=== PATIENT | female | born 1970 | race Caucasian/White ===

== ENCOUNTER 2016-06-12 11:59 | Emergency (ER) | payer OTHER ==
[~2016-06-12] VITALS: Ht 162.6 cm; Wt 85.2 kg
[2016-06-12] MEDS ORDERED: ONDANSETRON INJ 2 MG/ML 2 ML VIAL ONE (12:11)
[2016-06-12] MEDS ORDERED: SODIUM CHLORIDE 0.9% 1000ML 1,000 ML IV SCH (12:28)
[2016-06-12] MEDS ORDERED: HYDROmorphone INJ 1 MG/ML SYR IV STA (12:28)
[2016-06-12] MEDS ORDERED: PROCHLORPERAZINE 5 MG/ML 2 ML VIAL IV STA (12:28)
[2016-06-12] MEDS ORDERED: KETOROLAC TROMETHAMINE 30 MG/ML VIAL IV STA (12:28)
[2016-06-12] MEDS ORDERED: DiphenhydrAMINE HCL 50 MG/ML VIAL IV STA (12:28)
[2016-06-12] MEDS ORDERED: LABETALOL HCL IV 5 MG/ML 20ML IV STA (12:30)
--- NOTE | 2016-06-12 12:38 | EMERGENCY ROOM VISIT NOTE ---
History Report prepared by Lorna: Robinson Cruz Under the Supervision of: Dr. Angel Mullins M.D. First contact with patient: 12:19 Chief Complaint: SYNCOPE (NEAR SYNCOPE) Stated Complaint: SYNCOPE Nursing Triage Summary: Pt has had a headache for seven days. + N/V Zofran given per protocal History of Present Illness The patient is a 45 year old female who presents to the Emergency Room with complaints of a sudden episode of syncope occurring prior to arrival. She additionally complains of vomiting. The patient's states that she was at [facility], and she stated that she was dizzy, and then she lost her consciousness. The states that she had loss of consciousness for about two minutes. The states that the patient had Lyme's disease, and she smokes marijuana for the symptoms. The states that the patient has been having recurring headaches since she was diagnosed Source of History: patient Onset: prior to arrival Position: other (global) Quality: other (sycopal episode) Timing: other (sudden) Associated Symptoms: + LOC, + headache, + vomiting Review of Systems See HPI for pertinent positives & negatives. A total of 10 systems reviewed and were otherwise negative. Past Medical & Surgical Medical Problems: (1) Acute Lyme disease (2) Hypertension Social History Smoking Status: Current Some Day Smoker Drug Use: marijuana Marital Status: Housing Status: lives with family Occupation Status: employed Current/Historical Medications No Active Prescriptions or Reported Meds Physical Exam Vital Signs Date Time Temp Pulse Resp B/P Pulse Ox O2 Delivery O2 Flow Rate FiO2 06/12/16 14:11 36.5 88 18 184/110 97 06/12/16 14:07 36.5 88 18 184/110 97 06/12/16 13:49 88 18 184/110 97 Nasal Cannula 2.0 06/12/16 13:44 97 Nasal Cannula 2.0 06/12/16 13:42 170/108 06/12/16 13:40 74 21 97 06/12/16 13:38 194/115 06/12/16 13:37 173/129 06/12/16 13:35 84 20 96 06/12/16 13:30 76 17 93 06/12/16 13:30 70 14 204/115 94 Room Air 06/12/16 12:45 94 Room Air 06/12/16 12:16 73 18 182/114 94 Room Air 06/12/16 12:14 36.5 86 22 182/114 91 Room Air 06/12/16 12:09 92 Physical Exam CONSTITUTIONAL: Moderate nauseous and painful distress. HEENT: No icterus, moist mucous membranes NECK: No meningismus, trachea is midline. CARDIOVASCULAR: Regular rate, normal perfusion RESPIRATORY: Unlabored breathing. Clear to auscultation. GASTROINTESTINAL: Non-tender GENITOURINARY: No flank tenderness MUSCULOSKELETAL: Full range of motion NEUROLOGIC: No acute gross focal deficits. PSYCHIATRIC: Normal affect SKIN: Normal for ethnicity. Medical Decision & Procedures ER Provider Diagnostic Interpretation: Radiology results as stated below per my review and radiologist interpretation. CT SCAN OF THE BRAIN WITHOUT IV CONTRAST CLINICAL HISTORY: Strokelike symptoms. COMPARISON STUDY: No priors. TECHNIQUE: Unenhanced axial CT scan of the brain is performed from the vertex to the skull base. Automated dose control exposure was utilized. CT DOSE: 537.48 mGy.cm FINDINGS: Brain parenchyma: There is extensive subarachnoid hemorrhage, with blood filling the suprasellar cistern and the sylvian fissures. There is also trace blood within the quadrigeminal plate cisterns and along the midline frontal lobes. There is no parenchymal hematoma, mass effect, or evidence of acute territorial ischemia by CT criteria. [place]-white matter is preserved. No extra-axial fluid collection is seen. Ventricles, sulci, cisterns: Normal in configuration. No intraventricular blood is identified. Intracranial vasculature: The visualized intracranial vasculature at the skull base is normal in appearance. Calvarium: Unremarkable. Sinuses and mastoids: The visualized paranasal sinuses are clear. The mastoid air cells are well pneumatized. Orbits: The bony orbits are grossly intact. IMPRESSION: 1. There is extensive subarachnoid hemorrhage as above which appears to be centered around the suprasellar cistern. The appearance is highly concerning for ruptured aneurysm. 2. No parenchymal hematoma, mass effect, or evidence of acute territorial ischemia is identified. Electronically signed by: Shon Saunders M.D. 06/12/2016 1:09 PM Dictated Date/Time: 06/12/2016 1:06 PM SINGLE VIEW CHEST CLINICAL HISTORY: Stroke. FINDINGS: An AP, portable, upright chest radiograph is obtained. No prior studies are available for comparison at the time of dictation. The examination is degraded by portable technique, large body habitus, and patient rotation. The cardiomediastinal silhouette is unremarkable. There is elevation of right hemidiaphragm and nonspecific interstitial thickening. No airspace consolidation or pleural effusion is seen. No pneumothorax is identified. The skeletal structures appear osteopenic. The bony thorax is grossly intact. IMPRESSION: No acute cardiopulmonary abnormality. Electronically signed by: Shon Saunders M.D. 06/12/2016 1:15 PM Dictated Date/Time: 06/12/2016 1:15 PM Laboratory Results 06/12/16 11:40 Red Blood Count 4.76, Mean Corpuscular Volume 90.1, Mean Corpuscular Hemoglobin 30.3, Mean Corpuscular Hemoglobin Concent 33.6, Mean Platelet Volume 11.7, Neutrophils (%) (Auto) 48.7, Lymphocytes (%) (Auto) 40.3, Monocytes (%) (Auto) 8.8, Eosinophils (%) (Auto) 1.7, Basophils (%) (Auto) 0.2, Neutrophils # (Auto) 6.12, Lymphocytes # (Auto) 5.07, Monocytes # (Auto) 1.11, Eosinophils # (Auto) 0.22, Basophils # (Auto) 0.03 06/12/16 11:40 Test 06/12/16 11:40 06/12/16 12:52 White Blood Count 12.59 K/uL (4.8-10.8) Red Blood Count 4.76 M/uL (4.2-5.4) Hemoglobin 14.4 g/dL (12.0-16.0) Hematocrit 42.9 % (37-47) Mean Corpuscular Volume 90.1 fL (80-100) Mean Corpuscular Hemoglobin 30.3 pg (25-34) Mean Corpuscular Hemoglobin Concent 33.6 g/dl (32-36) Platelet Count 246 K/uL (130-400) Mean Platelet Volume 11.7 fL (7.4-10.4) Neutrophils (%) (Auto) 48.7 % Lymphocytes (%) (Auto) 40.3 % Monocytes (%) (Auto) 8.8 % Eosinophils (%) (Auto) 1.7 % Basophils (%) (Auto) 0.2 % Neutrophils # (Auto) 6.12 K/uL (1.4-6.5) Lymphocytes # (Auto) 5.07 K/uL (1.2-3.4) Monocytes # (Auto) 1.11 K/uL (0.11-0.59) Eosinophils # (Auto) 0.22 K/uL (0-0.5) Basophils # (Auto) 0.03 K/uL (0-0.2) RDW Standard Deviation 45.1 fL (36.4-46.3) RDW Coefficient of Variation 13.7 % (11.5-14.5) Immature Granulocyte % (Auto) 0.3 % Immature Granulocyte # (Auto) 0.04 K/uL (0.00-0.02) Anion Gap 14.0 mmol/L (3-11) Est Creatinine Clear Calc Drug Dose 85.4 ml/min Estimated GFR () 93.2 Estimated GFR (Non- 80.4 BUN/Creatinine Ratio 13.6 (10-20) Calcium Level 9.4 mg/dl (8.5-10.1) Total Creatine Kinase 155 U/L (26-192) Creatine Kinase MB 2.9 ng/ml (0.5-3.6) Creatine Kinase MB Ratio 1.9 (0-3.0) Troponin I < 0.015 ng/ml (0-0.045) Prothrombin Time 10.8 SECONDS (9.0-12.0) Prothromb Time International Ratio 1.0 (0.9-1.1) Activated Partial Thromboplast Time 24.4 SECONDS (21.0-31.0) Partial Thromboplastin Ratio 0.9 Labs reviewed by ED physician. Medications Administered Medications (Trade) Dose Ordered Sig/Shawanda Route Start Time Stop Time Status Last Admin Dose Admin Ondansetron HCl (Zofran Inj) 4 mg STK-MED ONCE .ROUTE 06/12/16 12:11 06/12/16 12:12 DC 06/12/16 13:03 4 MG Prochlorperazine Edisylate (Compazine Inj) 10 mg NOW STAT IV 06/12/16 12:28 06/12/16 12:30 DC 06/12/16 13:42 10 MG Ketorolac Tromethamine (Toradol Inj) 30 mg NOW STAT IV 06/12/16 12:28 06/12/16 12:30 DC 06/12/16 13:04 30 MG Hydromorphone HCl (Dilaudid Inj) 1 mg PRN STAT IV 06/12/16 12:28 06/12/16 12:30 DC 06/12/16 13:04 1 MG Labetalol HCl (Normodyne IV) 10 mg NOW STAT IV 06/12/16 12:30 06/12/16 12:31 DC 06/12/16 12:30 10 MG ECG Indication: syncope Rate (beats per minute): 88 Rhythm: sinus rhythm Findings: other (Normal [place], non-specific ST findings) ED Course 1219: Past medical records reviewed. The patient was evaluated in room A19. A complete history and physical examination was performed. 1228: Dilaudid Inj 1mg IV, Toradol Inj 30mg IV, Benadryl Inj 25mg IV, Compazine Inj 10mg IV, Sodium Chloride 1000 ml @ 50 mls/hr IV 1230: Labetalol HCl 10mg IV 1318: I reevaluated the patient, and I discussed the findings and treatment plans. 1328: I discussed the patient's case with Dr. John, [facility]. He is going to evaluate the patient for further treatment 1402: Life flight has left, and they are managing her blood pressure Medical Decision Differential diagnoses include but are not limited to; intracranial hemorrhage, migraine, substance abuse, hypertensive emergency. 45-year-old presents into the emergency room via ambulance after headache followed by brief loss of consciousness and then mild mental status changes with vomiting. Blood pressure reportedly 250/200 in the field. 200/160 in ER. She was given Ativan and Zofran and around and per ER protocol another dose of Zofran prior to my evaluation. She is alert, oriented when prompted although mildly confused. She appears very nauseous and is actively vomiting. Labetalol 10 mg IV ordered as well as stroke protocol. CT head notable for subarachnoid hemorrhage. Emergent transfer arranged to [facility] via [email or web address]. Review of systems was notable for waxing and waning recurrent headaches that were generally rapid in onset. Patient also reports they have no health care insurance and therefore did not follow up with her doctor or maintain compliance with antihypertensives. notes patient takes marijuana regularly for presumed Lyme disease induced headaches per alternative care provider and friend. Consults Time Called: 1325 Consulting Physician: Dr. John, [facility] Returned Call: 1323 I discussed the patient's case with Dr. John, [facility]. He is going to evaluate the patient for further treatment. Impression Primary Impression: Intracranial bleed Additional Impression: Hypertension Critical Care Critical Care time 30 mins Scribe Attestation The scribe's documentation has been prepared under my direction and personally reviewed by me in its entirety. I confirm that the note above accurately reflects all work, treatment, procedures, and medical decision making performed by me. Departure Information Dispostion Transfer Acute Care Facility Prescriptions No Active Prescriptions or Reported Meds Referrals No Doctor, Assigned (PCP) Problem Qualifiers
[2016-06-12 12:40] LABS: HEMATOCRIT 42.9 % (37-47); MEAN CELL VOLUME 90.1 fL (80-100); MEAN CORPUSCULAR HEMOGLOBIN 30.3 pg (25-34); MEAN CORPUSCULAR HGB CONC 33.6 g/dl (32-36); MEAN PLATELET VOLUME 11.7 fL (7.4-10.4); PLATELET COUNT 246 K/uL (130-400); RED BLOOD COUNT 4.76 M/uL (4.2-5.4); WHITE BLOOD COUNT 12.59 K/uL (4.8-10.8)
[2016-06-12 12:45] VITALS: Ht 162.6 cm; Wt 85.2 kg
[2016-06-12 12:48] LABS: BLOOD UREA NITROGEN 12 mg/dl (7-18); BUN/CREATININE RATIO 13.6 (10-20); CALCIUM 9.4 mg/dl (8.5-10.1); CARBON DIOXIDE 26 mmol/L (21-32); CHLORIDE 102 mmol/L (98-107); CREATININE 0.86 mg/dl (0.60-1.20); GLUCOSE 106 mg/dl (70-99); SODIUM 142 mmol/L (136-145)
[2016-06-12 12:52] LABS: CKMB/CK RATIO 1.9 (0-3.0)
[2016-06-12 13:03] LABS: BASO % 0.2 %; BASO ABS # 0.03 K/uL (0-0.2); COMPLETE YES; EOS % 1.7 %; IG% 0.3 %; LYMPH % 40.3 %; LYMPH ABS # 5.07 K/uL (1.2-3.4); MONO % 8.8 %; NEUT % 48.7 %
--- NOTE | 2016-06-12 13:11 | DIAGNOSTIC IMAGING REPORT ---
CT SCAN OF THE BRAIN WITHOUT IV CONTRAST CLINICAL HISTORY: Strokelike symptoms. COMPARISON STUDY: No priors. TECHNIQUE: Unenhanced axial CT scan of the brain is performed from the vertex to the skull base. Automated dose control exposure was utilized. CT DOSE: 537.48 mGy.cm FINDINGS: Brain parenchyma: There is extensive subarachnoid hemorrhage, with blood filling the suprasellar cistern and the sylvian fissures. There is also trace blood within the quadrigeminal plate cisterns and along the midline frontal lobes. There is no parenchymal hematoma, mass effect, or evidence of acute territorial ischemia by CT criteria. [place]-white matter is preserved. No extra-axial fluid collection is seen. Ventricles, sulci, cisterns: Normal in configuration. No intraventricular blood is identified. Intracranial vasculature: The visualized intracranial vasculature at the skull base is normal in appearance. Calvarium: Unremarkable. Sinuses and mastoids: The visualized paranasal sinuses are clear. The mastoid air cells are well pneumatized. Orbits: The bony orbits are grossly intact. IMPRESSION: 1. There is extensive subarachnoid hemorrhage as above which appears to be centered around the suprasellar cistern. The appearance is highly concerning for ruptured aneurysm. 2. No parenchymal hematoma, mass effect, or evidence of acute territorial ischemia is identified. Electronically signed by: Shon Saunders M.D. 06/12/2016 1:09 PM Dictated Date/Time: 06/12/2016 1:06 PM
--- NOTE | 2016-06-12 13:17 | DIAGNOSTIC IMAGING REPORT ---
SINGLE VIEW CHEST CLINICAL HISTORY: Stroke. FINDINGS: An AP, portable, upright chest radiograph is obtained. No prior studies are available for comparison at the time of dictation. The examination is degraded by portable technique, large body habitus, and patient rotation. The cardiomediastinal silhouette is unremarkable. There is elevation of right hemidiaphragm and nonspecific interstitial thickening. No airspace consolidation or pleural effusion is seen. No pneumothorax is identified. The skeletal structures appear osteopenic. The bony thorax is grossly intact. IMPRESSION: No acute cardiopulmonary abnormality. Electronically signed by: Shon Saunders M.D. 06/12/2016 1:15 PM Dictated Date/Time: 06/12/2016 1:15 PM
[2016-06-12 13:36] LABS: PARTIAL THROMBOPLASTIN RATIO 0.9; PROTHROMBIN TIME (PATIENT) 10.8 SECONDS (9.0-12.0)
[2016-06-12 13:44] VITALS: O2SAT 97
[2016-06-12 14:11] VITALS: BP 184/110; PULSE 88; TEMP 36.5; O2SAT 97
== END 2016-06-12 14:00 | disposition short-term general hospital (02) ==
LOC: C.EDA 12:01
DX: I60.9 Nontraumatic subarachnoid hemorrhage, unspecified (principal); I10 Essential (primary) hypertension; R29.702 NIHSS score 2; F12.90 Cannabis use, unspecified, uncomplicated; F17.200 Nicotine dependence, unspecified, uncomplicated; Z86.19 Personal history of other infectious and parasitic diseases